=== PATIENT | female | born 1990 | race African-American/Black ===

== ENCOUNTER 2017-10-17 13:04 | Emergency (ER) | payer BC ==
[2017-10-17 16:10] VITALS: BP 127/80
== END 2017-10-17 16:10 | disposition home or self-care (01) ==
LOC: ED 13:04
DX: S99.911A Unspecified injury of right ankle, initial encounter (principal); Z88.8 Allergy status to other drugs, medicaments and biological substances; W22.8XXA Striking against or struck by other objects, initial encounter; Y93.89 Activity, other specified; Y99.8 Other external cause status; Y92.89 Other specified places as the place of occurrence of the external cause